=== PATIENT | female | born 1955 ===

== ENCOUNTER 2017-11-02 07:53 | Day surgery (SDC) | payer OTHER ==
[2017-11-02 08:05] VITALS: BMI 36.0
[2017-11-02 08:55] LABS: BASO # 0.1 K/uL (0.0-0.2); BASO % 0.9 % (0.0-2.0); EOS # 1.1 K/uL (0.0-0.7); EOS % 7.6 % (0.0-4.0); HEMOGLOBIN 12.6 g/dL (12.0-16.0); LYMPH # 3.1 K/uL (1.0-4.3); LYMPH % 20.9 % (20.0-40.0); MEAN CELL VOLUME 91.7 fl (81.0-99.0); MEAN CORPUSCULAR HEMOGLOBIN 30.1 pg (27.0-31.0); MEAN CORPUSCULAR HGB CONC 32.8 g/dL (33.0-37.0); MEAN PLATELET VOLUME 10.4 fl (7.2-11.7); MONO # 0.8 K/uL (0.0-0.8); MONO % 5.6 % (0.0-10.0); NEUT # 9.7 K/uL (1.8-7.0); NRBC % 0.1 % (0.0-0.0); RBC 4.2 Mil/uL (3.80-5.20); RED CELL DISTRIBUTION WIDTH 13.5 % (11.5-14.5); WHITE BLOOD COUNT 14.9 K/uL (4.8-10.8)
[2017-11-02 09:09] LABS: INR 1.2 (0.9-1.2); PARTIAL THROMBOPLASTIN TIME 30.3 Seconds (25.6-37.1); PROTHROMBIN TIME 12.9 Seconds (9.8-13.1)
[2017-11-02] MEDS ORDERED: Lidocaine 1% Inj (20ml) ONE (09:55)
[2017-11-02 10:35] VITALS: BP 152/68; PULSE 64; RESP 20; TEMP 98.2; O2SAT 100
--- NOTE | 2017-11-02 11:16 | CP.SDSHP ---
Same Day Surgery H & P - History Proposed Procedure: PICC insertion Pre-Op Diagnosis: infection - Allergies Allergies: Allergies Penicillins Allergy (Unknown, Verified 10/13/17 14:45) ANAPHYLAXIS clindamycin Allergy (Verified 11/02/17 08:16) SWELLING Iodinated Contrast- Oral and IV Dye Allergy (Verified 11/02/17 08:16) VOMITING Sulfa (Sulfonamide Antibiotics) Allergy (Verified 11/02/17 08:16) REDNESS - Physical Exam Vital Signs: Vital Signs 11/02/17 11/02/17 11/02/17 08:37 08:39 10:23 Temperature 98.4 F 98.5 F Pulse Rate 71 71 66 Respiratory 20 16 Rate Blood Pressure 139/72 177/79 H O2 Sat by Pulse 100 99 Oximetry 11/02/17 10:25 Temperature 98.2 F Pulse Rate 64 Respiratory 20 Rate Blood Pressure 152/68 H O2 Sat by Pulse 100 Oximetry - Impression Impression: 62 yo female with infection requiring alf IV antibiotics; plan PICC insertion - Date & Time Date: 11/02/17 Time: 09:30 Short Stay Discharge - Short Stay Discharge Admitting Diagnosis/Reason for Visit: A49.07, L03.115 Disposition: HOME/ ROUTINE Referrals: Mark Benavidez MD [Primary Care Provider] -
--- NOTE | 2017-11-02 11:17 | PCM.SURG1 ---
Surgeon's Initial Post Op Note - Surgeon's Notes Surgeon: Andrey Tiwari MD Supervisor Grips: None Type of Anesthesia: Local Pre-Operative Diagnosis: infection Operative Findings: patent right basilic vein. catheter length: 43 cm. catheter tip: cavoatrial junction Post-Operative Diagnosis: same Operation Performed: RUE PICC Insertion Specimen/Specimens Removed: n/a Estimated Blood Loss: EBL {In ML}: 0 Date of Surgery/Procedure: 11/02/17 Time of Surgery/Procedure: 10:15
--- NOTE | 2017-11-02 16:12 | VASCULAR ---
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 COMPARISON: None. PROCEDURE: 1. Focused ultrasound of the right upper extremity vasculature. 2. Ultrasound-guided access. 3. Insertion of peripherally inserted central venous catheter. 4. Fluoroscopic localization of catheter tip. PRE-PROCEDURE FINDINGS: 1. Patent right basilic vein. POST-PROCEDURE FINDINGS: 1. Placement of 4 Surinamese single-lumen PICC. 2. Catheter length: 43 cm. 3. Catheter tip at cavoatrial junction. INTERVENTIONAL RADIOLOGIST: Andrey Tiwari M.D. (the attending was present for the entire procedure) ANESTHESIA: None. MEDICATION: Lidocaine 1% for local subcutaneous analgesia. COMPLICATIONS: None. RADIATION DOSE: Fluoroscopy Time: 14.4 seconds Cumulative Dose: 2.31 mGy PROCEDURE DESCRIPTION AND FINDINGS: The risks, benefits, alternatives and possible complications of the procedure were fully discussed; all questions were answered and informed consent was obtained. The patient was brought into the interventional suite and a pre-procedure 'time-out' was performed. The patient was placed on the fluoroscopy table in the supine position. The right upper extremity was prepped and draped in the usual sterile fashion. Maximum sterile barrier precautions were maintained throughout the entire procedure. Preliminary ultrasound images of the right upper extremity vasculature demonstrate patency of the right basilic vein. Following subcutaneous infiltration of 1% lidocaine for local analgesia, under ultrasound guidance, a 21-gauge needle was advanced into the right basilic vein with real-time visualization of needle entry. The ultrasound images were permanently recorded and submitted to the PACS. A 0.018 guidewire was advanced centrally to the cavoatrial junction. A 4.5 [place]amese peel-away sheath was advanced over the guidewire. After obtaining length measurement, a 4 [place]amese single-lumen PICC was placed with the tip of the catheter at the cavoatrial junction. The total length of the catheter is 43 cm. The hub of the PICC was secured to the skin using a sterile adhesive bandage. The patient tolerated the procedure well without immediate post-procedure complications and was transferred back to the floor in stable condition. IMPRESSION: SUCCESSFUL INSERTION OF RIGHT UPPER EXTREMITY PICC. PICC OK TO USE.
== END 2017-11-02 11:45 | disposition home or self-care (01) ==
LOC: H.OPSURG 07:53
PROVIDERS: ATTEND Podiatrist
DX: L03.115 Cellulitis of right lower limb (principal); Z88.0 Allergy status to penicillin; Z88.2 Allergy status to sulfonamides
CPT/HCPCS: 36415; 36561; 36569; 76937; 77001; 85025; 85610; 85730; A4310; C1751